=== PATIENT | female | born 1985 | race Caucasian/White ===

== ENCOUNTER → 2017-06-11 18:30 | Outpatient (CLI) | payer MEDICAID, SELFPAY ==
[2017-06-11 18:32] LABS: Bacteria 0 SEEN /hpf (None Seen); Mucous, Urine 0 SEEN /hpf (<or=2+)
[2017-06-11 19:10] LABS: Color, Urine Yellow (Yellow); Glucose, Dipstick Normal (Normal); Ketone-Dipstick Negative (Negative); Leukocyte Esterase-Dipstick Negative /ul (Negative); Nitrite-Dipstick Negative (Negative); Occult Blood-Urine 50 /ul (Negative); Protein-Dipstick Negative (Negative); Urine Bilirubin Dipstick Negative (Negative); Urine Clarity Clear (Clear); Urine Urobilinogen Normal (Normal)
[2017-06-11 19:23] LABS: Red Blood Cells-Urine 0-5 SEEN /hpf (0-5); Squamous Epithelial Cells - UA 0-5 SEEN /hpf (5-10); White Blood Cells 0-5 SEEN /hpf (0-5)
== END ==
PROVIDERS: Visit Provider Physician Assistant Surgical
DX: R30.0 Dysuria (principal)
CPT/HCPCS: 81001; 87077; 87086; 87088; 87186

== ENCOUNTER 2017-07-16 09:31 | Emergency (ER) | payer MEDICAID, SELFPAY ==
[2017-07-16 09:32] VITALS: BP 148/96; PULSE 92; RESP 26; TEMP 36.2; O2SAT 96; BMI 67.2
[2017-07-16 09:44] VITALS: BP 142/86; PULSE 84; RESP 21; O2SAT 96
--- NOTE | 2017-07-16 09:44 | EKG12_ITS ---
Test Reason : SOB Blood Pressure : / mmHG Vent. Rate : 080 BPM Atrial Rate : 081 BPM P-R Int : 172 ms QRS Dur : 088 ms QT Int : 408 ms P-R-T Axes : 043 048 036 degrees QTc Int : 470 ms Normal sinus rhythm Normal ECG Confirmed by ADAIR HUTSON ([id number]), medical editor STEFANI YANG ([id number]) on 07/26/2017 6:18:25 PM Referred By: MIKAYLA Confirmed By:ADAIR HUTSON
--- NOTE | 2017-07-16 09:45 | CT_ITS ---
STUDY: CTA CHEST REASON FOR EXAM: Female, 32 years old. Dyspnea. The patient is status post thyroidectomy. RADIATION DOSAGE (If Supplied By Facility): CTDIvol = ( 16.72 ) mGy, DLP = ( 789.58 ) mGycm TECHNIQUE: The examination was performed with the intravenous administration of 100 ml of Isovue 370 contrast material. Post-processing of the angiographic images was performed, with multiplanar reformation and 3D reconstruction. Individualized dose optimization techniques were used for this CT. COMPARISON: None. FINDINGS: Limited study due to patient's body habitus. Normal enhancement of the main pulmonary artery and right and left pulmonary arteries. Normal enhancement of the bilateral peripheral pulmonary arteries. There is no demonstrated pulmonary embolism. Normal thoracic aorta and visualized great vessels. There is no demonstrated aortic dissection. Normal heart and pericardium. Normal mediastinum. Normal hilar regions. Normal visualized trachea and bronchi. The lungs are well expanded. Focal increased markings at the posterior medial segments of both lower lobes suggestive of a bibasilar atelectasis. Normal pleura. Normal chest wall structures. Normal osseous structures. Normal visualized upper abdomen. CT/CTA Chest W/WO Contrast IMPRESSION: No definite pulmonary embolism is seen. Findings suggestive of bibasilar atelectasis. Electronically Signed: Jacob Holguin MD at 11:16 EDT Tel [phone], Service support ,
[2017-07-16 10:14] LABS: Absolute Lymphocyte Count 2.08 X10^3/ul (0.83-4.51); Absolute Neutrophil Count 5.6 X10^3/uL (2.0-7.7); Basophil# 0.01 X10^3/uL; Basophil% 0.1 % (0-1); Eosinophil# 0.05 X10^3/uL; Eosinophils% 0.6 % (0-5); Hematocrit 38.6 % (37-47); Lymphocyte # 2.08 X10^3/ul (4.0); Lymphocyte % 24.7 % (19-41); Mean Corp Hgb Conc 31.1 g/gl (32-36); Mean Corpuscular Hgb 26.3 pg (27.0-32.0); Mean Corpuscular Volume 84.6 fL (81-99); Mean Platelet Vol. 10.1 fl (6.2-12.0); Monocyte# 0.69 X10^3/uL; Monocyte% 8.2 % (0-10); Neutrophil # 5.57 X10^3/uL (2.7-7.7); Neutrophil % 66.3 % (47-70); Platelet Count 176 K/mm3 (150-450); RBC Distribution Width CV 14.4 % (11.6-14.6); RBC Distribution Width SD 44.8 fl (35.1-43.9); Red Blood Count 4.56 M/mm3 (4.2-5.4); White Blood Count 8.4 K/mm3 (4.4-11.0)
[2017-07-16 10:15] LABS: POSITIVE COUNT NO; POSITIVE DIFFERENTIAL NO; POSITIVE MORPHOLOGY NO
[2017-07-16 10:23] LABS: D-Dimer Quantitative (DVT/PE) 0.48 FEU/ug/m (0.27-0.49)
[2017-07-16 10:29] LABS: Anion Gap 8 (5-15); BUN 14 mg/dL (7-18); Calcium,Total 6.8 mg/dL (8.5-10.1); Chloride 108 mmol/L (98-107); Creatinine, Serum 0.93 mg/dL (0.55-1.02); EST Glomerular Filtration Rate 75 mL/min (>60); Est Glom Filt Rate - Afr Amer 90 mL/min (>60); Estimated Creatinine Clearance 95.65 ml/min; Glucose 100 mg/dL (74-106); Potassium 3.6 mmol/L (3.5-5.1); Sodium Level 141 mmol/L (136-145)
[2017-07-16] MEDS: LORazepam 2 MG/ML Syringe 1 MG IV (10:59)
[2017-07-16] MEDS: 0.9% Normal Saline 1,000 ML 150 ML IV (10:59)
[2017-07-16 11:00] VITALS: BP 131/98; PULSE 81; RESP 22; O2SAT 95
--- NOTE | 2017-07-16 11:32 | NURSING ---
CALLING DR POWELL [phone]
[2017-07-16 11:40] VITALS: PULSE 90; RESP 22
[2017-07-16] MEDS: Ipratropium/Albuterol Sulfate 3 ML AMPUL.NEB INHALATION (11:40)
--- NOTE | 2017-07-16 11:49 | ED.VISSUMM ---
- ER Visit Summary Date of Service: 07/16/17 Chief Complaint: [Shortness of breath] History of Present Illness: The patient is a 32 F [presents the emergency department complaint of shortness of breath that started yesterday evening. Patient also complains of some chest tightness. Patient tells me that she had a thyroidectomy done 2 days ago at the [facility]. Patient also complains of numbness and tingling in her feet. She denies any fever or significant cough. Patient tells me she does have a history of asthma and tried using her inhaler with out any resolution of her symptoms.] Physical Examination: [HEENT-PERRLA, EOMI. Cranial nerves II through XII grossly intact. TMs clear. Mucous membranes moist. No adenopathy. Surgical wound on anterior neck healing well without any evidence of infection. No masses palpated. Negativ Chevostek sign. Cardiovascular-regular rate and rhythm without murmur or ectopy Lungs-clear to auscultation, chest wall stable without crepitus or subcu emphysema Abdomen-normoactive bowel sounds, soft, nontender, no rebound or rigidity, no peritoneal signs. Extremities-intact ?4, normal range of motion, normal pulses, atraumatic] Test Results: [CBC with differential showed a white count of 8.4, hemoglobin 12, hematocrit 38.6, platelets 176. Troponin was less than 0.015. Chemistries were unremarkable other than a calcium that was depressed at 6.8. D-dimer was 0.48.] CTA of the chest revealed no evidence for PE or acute disease process. There was no evidence for abscess or compressive lesion at the surgical site in her neck. Emergency Department Course and Treatment: [Patient case discussed with patient's surgeon who asked that patient take 1000 mg of calcium every other hour and increase her calcitriol to 0.5 mcg twice a day. It was felt her symptoms likely due to hypercalcemia related to donning of the hyperparathyroid glands. Patient to follow-up with his office in 3-4 days and call with further issues.] Treatment Plan: [Follow-up with her surgeon and increase her calcium intake as well as her calcitriol.] Disposition: [Discharged home in stable condition] Impression: [Dyspnea Hypocalcemia] This note was generated with [employer] software. It may contain incorrect words, spelling, and punctuation that were not noted in review of the chart prior to signing ED Disposition - Plan for ED Patient: Chief Complaint: Shortness of Breath Referrals: Gregorio Adams MD [Primary Care Provider] -
--- NOTE | 2017-07-16 11:53 | ED.DCSUM_ITS ---
- ER Visit Summary Date of Service: 07/16/17 Chief Complaint: [Shortness of breath] History of Present Illness: The patient is a 32 F [presents the emergency department complaint of shortness of breath that started yesterday evening. Patient also complains of some chest tightness. Patient tells me that she had a thyroidectomy done 2 days ago at the [facility]. Patient also complains of numbness and tingling in her feet. She denies any fever or significant cough. Patient tells me she does have a history of asthma and tried using her inhaler with out any resolution of her symptoms.] Physical Examination: [HEENT-PERRLA, EOMI. Cranial nerves II through XII grossly intact. TMs clear. Mucous membranes moist. No adenopathy. Surgical wound on anterior neck healing well without any evidence of infection. No masses palpated. Negativ Chevostek sign. Cardiovascular-regular rate and rhythm without murmur or ectopy Lungs-clear to auscultation, chest wall stable without crepitus or subcu emphysema Abdomen-normoactive bowel sounds, soft, nontender, no rebound or rigidity, no peritoneal signs. Extremities-intact ?4, normal range of motion, normal pulses, atraumatic] Test Results: [CBC with differential showed a white count of 8.4, hemoglobin 12 , hematocrit 38.6, platelets 176. Troponin was less than 0.015. Chemistries were unremarkable other than a calcium that was depressed at 6.8. D-dimer was 0.48.] CTA of the chest revealed no evidence for PE or acute disease process. There was no evidence for abscess or compressive lesion at the surgical site in her neck. Emergency Department Course and Treatment: [Patient case discussed with patient' s surgeon who asked that patient take 1000 mg of calcium every other hour and increase her calcitriol to 0.5 mcg twice a day. It was felt her symptoms likely due to hypercalcemia related to donning of the hyperparathyroid glands. Patient to follow-up with his office in 3-4 days and call with further issues.] Treatment Plan: [Follow-up with her surgeon and increase her calcium intake as well as her calcitriol.] Disposition: [Discharged home in stable condition] Impression: [Dyspnea Hypocalcemia] This note was generated with [employer] software. It may contain incorrect words, spelling, and punctuation that were not noted in review of the chart prior to signing ED Disposition - Plan for ED Patient: Chief Complaint: Shortness of Breath Referrals: Gregorio Adams MD [Primary Care Provider] -
--- NOTE | 2017-07-16 11:53 | ED.DEP ---
ED Disposition - Plan for ED Patient: Chief Complaint: Shortness of Breath Instructions: ED Dyspnea Shortness of Breath, ED Hypocalcemia Referrals: Gregorio Adams MD [Primary Care Provider] - Additional Instructions: call your surgeon with any problems.
[2017-07-16 12:12] VITALS: BP 144/94; PULSE 97; RESP 22; O2SAT 97
--- NOTE | 2017-07-16 12:13 | ED.RN ---
THIS NURSE REVIEWED D/C INSTRUCTIONS WITH PT. PT VERBALIZED UNDERSTANDING OF INSTRUCTIONS. IV D/C. IV CATHETER INTACT. PT TOLERATED WELL. PT ASSISTED TO HOSPITAL VAN VIA W/C. PT ABLE TO GET INTO VAN ON HER OWN WITHOUT ASSISTANCE FROM STAFF. PT DENIES FURTHER NEEDS OR QUESTIONS AT THIS TIME.
== END 2017-07-16 12:15 | disposition home or self-care (01) ==
PROVIDERS: Emergency Provider Emergency Medicine; Family Provider Family Medicine; PCP Family Medicine
DX: R06.00 Dyspnea, unspecified (principal); E83.51 Hypocalcemia; J45.909 Unspecified asthma, uncomplicated; E89.0 Postprocedural hypothyroidism; Z79.51 Long term (current) use of inhaled steroids
CPT/HCPCS: 71275; 80048; 84484; 85025; 85379; 93005; 94640; 96361; 96374; 99284; J7030; Q9967; A4216

== ENCOUNTER 2017-09-09 09:00 | Outpatient (RCR) | payer MEDICAID, SELFPAY ==
--- NOTE | 2017-04-23 14:42 | HP.PTEVAL_ITS ---
Patient's Visit Information DANIEL WESLEY is a 32 year old F referred to Physical Therapy by Gregorio LOUISE with a diagnosis of SPINAL STENOSIS OF LUMBAR REGION UNSPECIFIED NUEROGENIC PRESENT. Date of Evaluation: 04/23/17 Physical Therapist: Jeffry Martel PT, - Visit Plan Frequency: 2x /Week Duration: 4 Weeks Plan: Aquatic PT, for lumbar ROM ,strength,conditiong,LE strength - Subjective Subjective: This 32 y/o female presents to physical therapy with lumbar pain and radicular symptoms due to spinal stenosis. Patient has lumbar pain and raducular syptoms in legs for 3 years ago which has been worsning. Patient had spinal stenosis from CT Scan possible congential .Seen Neurolgist recommended surgery. Family DR carbajalded PT ,and epidural injection. Patient chiropractor, MEDS. Patient plan biariatric surgery. Also plan to have throid surgery. Location of pain lumbar pain with symptoms to foot. Symmptoms worse with walking ,standing,bending,lifting. Symptoms better sitting,rest,MEDS.Pain affects sleeping.Symtoms desribed as burning.Pain seen pain managemnent. Pain affects quality of life.Patient has some tingling left leg. VOCATION: UNEMPLOYED. SOCIAL: single - Pain Bilateral Back Pain Intensity (Out of 10): 10 Pain Intensity Range: 10 Comment: walking Left Lower Extremity Pain Intensity (Out of 10): 10 Pain Intensity Range: 10 - Objective POSTURE: mild foward posture ,hips/knees,valgus knee. PALAPTION: tender posteriot left side. GAIT: slow alverto ,mild foward posture,waddle gait ,SOB , wide NORBERTO. NEURO: denies parathesia/tingling ,redflexes L3-4,L4-5,L5-S1 1/3. LUMBAR ROM: flexion mod loss,side glides mod loss,extension severe loss pain. FLEXABLITY: hams mod tight,piriformis mod/severe loss. MMT: L-quads/hams 3-/5, hip 3-/5,ankle 4-/5,R - 4-/5. SYMTTRIES: assymtrical pelvis - Special Tests L/S Slump test left side: Positive L/S Slump test right side: Positive L/S Left Straight Leg Raise: Positive L/S Right Straight Leg Raise: Positive Lumbar Standing: Flexion - Mechanical Response: No effect Lumbar Standing: Flexion - Symptoms During Testing: Abolishes Lumbar Standing: Flexion - Symptoms After Testing: Worse Lumbar Standing: Extension - Mechanical Response: No effect Lumbar Standing: Extension - Symptoms During Testing: Increases Lumbar Standing: Extension - Symptoms After Testing: Worse Lumbar Standing: Right Side Glides - Mechanical Response: No effect Lumbar Standing: Right Side [place] - Symptoms During Testing: Increases Lumbar Standing: Right Side [place] - Symptoms After Testing: Worse Lumbar Standing: Left Side [place] - Mechanical Response: No effect Lumbar Standing: Left Side [place] - Symptoms During Testing: Increases Lumbar Standing: Left Side [place] - Symptoms After Testing: Worse - Goals Goal 1:: Patient to be Independant with Aqutaic PT Goal 2:: Patient to be Independant with posture for ADL'S Goal Time Frame: 4-6 Weeks Goal 3:: Improve strength of left leg to 3/5 to improve from function with walking. Goal Time Frame: 4-6 Weeks Goal 4:: Patient improve lumbar ROM for function of recovery. Goal Time Frame: 4-6 Weeks Goal 5:: Improve quality of quality of gait with less pain Goal Time Frame: 4-6 Weeks Goal 6:: Patient to improve functional endurance for activity to fair to improne ADL'S AND WALKING Goal Time Frame: 4-6 Weeks - Rehabilitation Potential Physical Therapy Diagnosis: This patient has multiple complexity comorbities along with severe pain in lumbar and leg due to spinal stenosis ,poor Lum bar ROM, decrease strength left leg hip/knee impairs gait and ADL'S,thus benifit from skilled PT Rehabilitation Potential: Good - Anticipated Interventions Patient/Client Instruction: Educate patient on: Condition, Plan of Care For the Purpose of:: To decrease pain, To decrease swelling/inflammation, To increase ROM, To improve muscle performance and motor function, To increase tolerance to activity/condition/position, To improve ability of physical actions for home/community/work/leisure, To improve health of tissue, To decrease soft tissue restriction, To increase flexibility/ROM, To improve endurance, To improve balance, To improve safety with gait, To improve health and function, To foster healthy habits, To improve decision making, To improve ability to perform tasks related to life management Therapeutic Exercise to Include: Strength training, Balance training, Body mechanics, Postural training, Flexibilty training, In an aquatic setting, Dynamic Lumbar Stabilization For the Purpose of:: To decrease pain, To increase ROM, To improve muscle performance and motor function, To increase tolerance to activity/condition/ position, To improve ability of physical actions for home/community/work/leisure , To improve health of tissue, To decrease soft tissue restriction, To increase flexibility/ROM, To improve endurance, To assume or resume ADL's, To improve health and function, To foster healthy habits, To improve ability to perform tasks related to life management Thank you for the opportunity to evaluate your patient. For Medicare and Medicare HMO plans, please review the plan of care and approve it. It will need to be FAXED BACK to us at [phone] for Medicare purposes. Please let me know if there are questions or concerns regarding this plan of care. Physician Signature: Date:
--- NOTE | 2017-10-28 12:26 | HP.PTDCNRP_ITS ---
HP - Discharge Summary (1) - Patient Information DANIEL WESLEY was seen in my office for initial evaluation on 04/23/17. The following Plan of Care was established for this patient: Initial Frequency: 2x /Week Initial Duration: 4 Weeks - Anticipated Interventions Patient/Client Instruction: Educate patient on: Condition, Plan of Care For the Purpose of:: To decrease pain, To decrease swelling/inflammation, To increase ROM, To improve muscle performance and motor function, To increase tolerance to activity/condition/position, To improve ability of physical actions for home/community/work/leisure, To improve health of tissue, To decrease soft tissue restriction, To increase flexibility/ROM, To improve endurance, To improve balance, To improve safety with gait, To improve health and function, To foster healthy habits, To improve decision making, To improve ability to perform tasks related to life management Therapeutic Exercise to Include: Strength training, Balance training, Body mechanics, Postural training, Flexibilty training, In an aquatic setting, Dynamic Lumbar Stabilization For the Purpose of:: To decrease pain, To increase ROM, To improve muscle performance and motor function, To increase tolerance to activity/condition/ position, To improve ability of physical actions for home/community/work/leisure , To improve health of tissue, To decrease soft tissue restriction, To increase flexibility/ROM, To improve endurance, To assume or resume ADL's, To improve health and function, To foster healthy habits, To improve ability to perform tasks related to life management This patient was last seen in our office . Pertinent comments regarding their Physical therapy will appear below: Patient was seen for PT INTIAL PT EVAL only ,thus is d/c. At this point I will be discontinuing this patient from physical therapy. I would be happy to see this patient again in the future if found appropriate by the physician. Thank you! Jeffry Martel, PT,
--- NOTE | 2017-10-28 12:29 | HP.PTDCNRP_ITS ---
HP - Discharge Summary (1) - Patient Information DANIEL WESLEY was seen in my office for initial evaluation on 04/23/17. The following Plan of Care was established for this patient: Initial Frequency: 2x /Week Initial Duration: 4 Weeks - Anticipated Interventions Patient/Client Instruction: Educate patient on: Condition, Plan of Care For the Purpose of:: To decrease pain, To decrease swelling/inflammation, To increase ROM, To improve muscle performance and motor function, To increase tolerance to activity/condition/position, To improve ability of physical actions for home/community/work/leisure, To improve health of tissue, To decrease soft tissue restriction, To increase flexibility/ROM, To improve endurance, To improve balance, To improve safety with gait, To improve health and function, To foster healthy habits, To improve decision making, To improve ability to perform tasks related to life management Therapeutic Exercise to Include: Strength training, Balance training, Body mechanics, Postural training, Flexibilty training, In an aquatic setting, Dynamic Lumbar Stabilization For the Purpose of:: To decrease pain, To increase ROM, To improve muscle performance and motor function, To increase tolerance to activity/condition/ position, To improve ability of physical actions for home/community/work/leisure , To improve health of tissue, To decrease soft tissue restriction, To increase flexibility/ROM, To improve endurance, To assume or resume ADL's, To improve health and function, To foster healthy habits, To improve ability to perform tasks related to life management This patient was last seen in our office 06/22/17. Pertinent comments regarding their Physical therapy will appear below: Patient seen for PT for Aquatic PT focusing on DLS,postural ex's,LE strengthening and recommended motorized W/C. Symptom getting worse thus bis d/c. At this point I will be discontinuing this patient from physical therapy. I would be happy to see this patient again in the future if found appropriate by the physician. Thank you! Jeffry Martel, PT,
== END 2017-09-09 19:00 | disposition home or self-care (01) ==
LOC: PT 09:00
PROVIDERS: Family Provider Family Medicine; PCP Family Medicine; Visit Provider Family Medicine
DX: M48.061 Spinal stenosis, lumbar region without neurogenic claudication (principal)
CPT/HCPCS: 97113; 97162; 97530

== ENCOUNTER 2020-07-12 05:06 | Emergency (ER) | payer MEDICARE, MEDICAID, SELFPAY ==
[2018-01-07 08:08] VITALS: BMI 61.7
[2020-07-12 05:07] VITALS: BP 146/76; PULSE 71; RESP 16; TEMP 37.2; O2SAT 97; BMI 50.3
--- NOTE | 2020-07-12 05:29 | EKG12_ITS ---
Test Reason : DYSRHYTHMIA Blood Pressure : / mmHG Vent. Rate : 067 BPM Atrial Rate : 067 BPM P-R Int : 174 ms QRS Dur : 096 ms QT Int : 412 ms P-R-T Axes : 062 053 032 degrees QTc Int : 435 ms Normal sinus rhythm Normal ECG Confirmed by JAE BRUNER, SHIRA ([id number]), book or script editor KJ ISIDRO ([id number]) on 07/16/2020 1:56:28 PM Referred By: CHICHI Confirmed By:SHIRA ROWE MD
--- NOTE | 2020-07-12 05:29 | RAD_ITS ---
STUDY: X-RAY CHEST REASON FOR EXAM: Female, 35 years old. syncope TECHNIQUE: Single AP portable view of the chest. COMPARISON: 06/24/2015 FINDINGS: The lungs are clear and expanded. There is no demonstrated pleural abnormality. Normal size heart. Normal mediastinum and rebecca. Normal visualized pulmonary arteries. Normal visualized aortic arch and descending thoracic aorta. Normal visualized thoracic spine. Normal visualized ribs, clavicles, and shoulders. There is no demonstrated abnormality of the visualized soft tissue structures of the upper abdomen. RAD/Chest 1 View (Portable) IMPRESSION: Normal x-ray examination of the chest. Electronically Signed: Kasi Shelby DO at 6:23 EDT Tel , Service support ,
[2020-07-12 05:40] LABS: Absolute Lymphocyte Count 2.23 X10^3/uL (0.83-4.51); Absolute Neutrophil Count 4.4 X10^3/uL (2.0-7.7); Basophil# 0.02 X10^3/uL; Basophil% 0.3 % (0-1); Eosinophil# 0.06 X10^3/uL; Eosinophils% 0.8 % (0-5); Hemoglobin 13.2 g/dL (12.0-15.0); Lymphocyte # 2.23 X10^3/ul (0.83-4.51); Mean Corp Hgb Conc 32.2 g/dL (32-36); Mean Platelet Vol. 10.7 fl (6.2-12.0); Monocyte# 0.67 X10^3/uL; NRBC Flagged by Analyzer 0 % (0-5); Neutrophil # 4.43 X10^3/uL (2.7-7.7); Neutrophil % 59.6 % (47-70); Platelet Count 185 K/mm3 (150-450); RBC Distribution Width CV 12.4 % (11.6-14.6); RBC Distribution Width SD 39.3 fl (35.1-43.9); Red Blood Count 4.71 M/mm3 (4.2-5.4); White Blood Count 7.4 K/mm3 (4.4-11.0)
--- NOTE | 2020-07-12 05:41 | EX.ED.DYSGE1 ---
HPI History of Present Illness Chief Complaint: Syncope Informant: patient Onset/Context/Timing Onset: Today Narrative Narrative: Patient is a 35-year-old female presenting after syncopal episode. Patient states that she is having palpitations all night. She got up from bed and started to feel very sweaty. She got out of bed and took a metoprolol which she states she takes if she is having palpitations from time to time. She called 911 because she was not feeling well and they told her to unlock her door in her apartment. When she was walking back from that she then passed out. Patient states she hit her head on the wall. She does not remember this. She states that she felt nauseous right before this happened as well. Patient denies any history of syncope. She notes that 4 days ago she was started on new anxiety medication Effexor. In addition she did start a liquid diet in anticipation of having gastric bypass in a week. She is about a year and a half out from having gastric sleeve procedure. Patient denies associated chest pain, shortness of breath or difficulty breathing. She denies any diarrhea or abdominal pain. She denies any black or bloody stools. She is not taking any yeee-nva-wlewiri medications. She is not any hormonal therapy. She denies any swelling of her legs. She has a history of DVT or PE. Prior similar symptoms: No PFSH PFSH Medical History Asthma Back pain Hay fever Hemorrhoids Hypertension Incontinence Severe headache SOB (shortness of breath) Home Medications azithromycin 250 mg tablet See Rx Instructions PO .COMPLEX #6 tab 01/07/18 [Rx Last Taken Unknown] dextromethorphan polistirex 30 mg/5 mL oral susp ext.release 12hr 10 ml PO ONCE 01/07/18 [History Last Taken Unknown] ypscknjdyw-LB-EX-acetaminophen 6.25 mg-5 mg-10 mg-325 mg capsule 2 cap PO ONCE 01/07/18 [History Last Taken Unknown] cholecalciferol (vitamin D3) [Vitamin D3] 50 mcg PO DAILY 07/12/20 [History Last Taken Unknown] levothyroxine 200 mcg PO DAILY 07/12/20 [History Last Taken Unknown] multivitamin 1 tab PO DAILY 07/12/20 [History Last Taken Unknown] venlafaxine 37.5 mg PO DAILY 07/12/20 [History Last Taken Unknown] Allergy/AdvReac Type Severity Reaction Status Date / Time ibuprofen AdvReac Upset Verified 07/12/20 05:13 Stomach NSAIDS (Non-Steroidal AdvReac Upset Verified 07/12/20 05:14 Anti-Inflamma Stomach Surgical History History of appendectomy History of cholecystectomy History of gastric surgery History of thyroidectomy Social History Smoking Status: Never smoker alcohol intake: never ROS ROS ED Constitutional Constitutional ED: Reports sweats and other Details: Syncope ; Denies chills, fever(s) or malaise Eyes Eyes: Denies blurry vision or loss of vision ENT ENT ED: Denies rhinorrhea or sore throat Cardiovascular Cardiovascular: Reports palpitations and racing heartbeat; Denies chest pain or dizziness Respiratory/Chest Respiratory/Chest: Denies cough or dyspnea Gastrointestinal Gastrointestinal: Reports nausea; Denies abdominal pain, diarrhea, melena or vomiting Genitourinary Genitourinary ED: Denies dysuria or hematuria Musculoskeletal Musculoskeletal: Denies arthralgias or myalgias Integumentary Denies rash or wounds Neurologic Neurologic: Denies focal weakness or headache(s) Psychiatric Psychiatric: Denies anxiety or behavioral changes EXAM Physical Exam Const Vital Signs: 07/12/20 05:07 07/12/20 05:14 07/12/20 06:38 Temperature 99 F Temperature Source Oral Pulse Rate 71 Pulse Rate [Lying] 66 Pulse Rate [Sitting] 81 Pulse Rate [Standing] 78 Respiratory Rate 16 Respiratory Effort Normal Respiratory Pattern Normal Blood Pressure 146/76 H Blood Pressure [Lying] 106/55 L Blood Pressure [Sitting] 112/61 Blood Pressure [Standing] 97/62 Blood Pressure Mean 99 Blood Pressure Mean [Lying] 72 Blood Pressure Mean [Sitting] 78 Blood Pressure Mean [Standing] 73 Pulse Ox 97 Oxygen Delivery Method Room Air Positive well nourished, well developed and no apparent distress General Appearance ED: well developed and NAD HEENT Reports normocephalic and moist mucous membranes HEENT Narrative: Contusion to left lateral eyebrow with some associated soft tissue swelling. No septal hematoma or signs of epistaxis. No malocclusion. atraumatic and trauma Nose: no nasal discharge General Ear: hearing grossly impaired External Ear: external ears normal Mouth ED: Yes moist mucous membranes abnormal Mouth: moist mucous membranes abnormal Eyes PERRL and EOMs intact bilaterally Neck full ROM and no meningeal signs Chest Wall inspection of chest normal Resp normal respiratory effort, normal air movement and clear to auscultation bilaterally Cardio regular rate, regular rhythm and no murmurs GI normal to inspection, nondistended, normoactive bowel sounds Back/Spine no CVA tenderness Extremity normal to inspection and full ROM Neuro oriented x3 and no focal motor deficits Sensorium / Orientation: alert Psych mental status grossly normal and thought process normal Skin no rashes or lesions noted and no wounds Skin Narrative: 1 cm superficial abrasion to the left lateral eyebrow Trauma: abrasion MDM MDM MDM Narrative Medical decision making narrative: Patient evaluated for dizziness. She had a syncopal episode at home. She does have a small contusion to her eyebrow. She appears nontoxic no acute distress to my evaluation. She is hemodynamically stable. Orthostatics are negative. She is given IV fluids. Patient was recently transition to a liquid diet in anticipation of gastric bypass and also switch to Effexor. I did look it up and Effexor has a side effect of dizziness 16% of the time. I suspect her dizziness is a combination of the new medication and her liquid diet. She does have ketones in her urine. Lab work is largely remarkable. Troponin is normal. EKG is normal. She does have some dizziness in the ER but has normal telemetry at that time. I do not think this is cardiac in nature. Patient is PE RC negative. Do not suspect PE as a cause of her syncope . Urinalysis is likely contaminated however she does have 4+ bacteria. It is sent out for culture. Patient was given IV fluids. She will be discharged home. Patient states she will stop taking the Effexor and follow-up with her prescribing doctor. Patient is counseled on signs and symptoms requiring return to the emergency room. Patient verbalizes agreement and understand this plan. Patient discharged home in stable and improved condition. Lab Data Labs: Laboratory Results - last 24 hr 07/12/20 07/12/20 07/12/20 05:30 05:30 06:40 WBC 7.4 RBC 4.71 Hgb 13.2 Hct 41.0 MCV 87.0 MCH 28.0 MCHC 32.2 RDW Std Deviation 39.3 RDW Coeff of Cheli 12.4 Plt Count 185 MPV 10.7 Immature Gran % (Auto) 0.300 Neut % (Auto) 59.6 Lymph % (Auto) 30.0 [place] % (Auto) 9.0 Eos % (Auto) 0.8 Baso % (Auto) 0.3 Absolute Neuts (auto) 4.4 Absolute Lymphs (auto) 2.23 Nucleated RBC % 0 Sodium 139 Potassium 3.3 L Chloride 106 Carbon Dioxide 24.0 Anion Gap 9 BUN 12 Creatinine 0.85 Estim Creat Clear Calc 101.80 Est GFR (MDRD) Af Amer 99 Est GFR (MDRD) Non-Af 82 BUN/Creatinine Ratio 14.1 Glucose 91 Calcium 8.3 L Total Bilirubin 1.90 H AST 17 ALT 24 Alkaline Phosphatase 75 Troponin I < 0.015 Total Protein 7.4 Albumin 3.7 Globulin 3.7 Albumin/Globulin Ratio 1.0 Urine Color Yellow Urine Clarity Clear Urine pH 5.0 Ur Specific [place] 1.025 Urine Protein 30 H Urine Glucose (UA) Normal Urine Ketones 50 H Urine Occult Blood Negative Urine Nitrite Negative Urine Bilirubin Negative Urine Urobilinogen Normal Ur Leukocyte Esterase 100 H Urine RBC 0 SEEN Urine WBC 10-25 SEEN Ur Squamous Epith Cells 5-10 SEEN Urine Bacteria 4+ Hyaline Casts 5-10 SEEN Urine Mucus 0 SEEN Urine Test Negative Radiography Diagnostic Testing: Radiology Impression Chest X-Ray 07/12/20 05:29 IMPRESSION: Normal x-ray examination of the chest. Electronically Signed: Kasi Shelby DO at 6:23 EDT Tel , Service support , Rhythm Strip Rhythm Strip: Sinus Rhythm Rate: 67 Ectopy: None EKG Initial EKG: Attestation: I personally reviewed and interpreted this EKG as follows: Interpretation: Sinus Rhythm Comments: Normal sinus rhythm rate of 67 Normal axis Normal intervals Normal ST segments Discharge Plan Triage Chief Complaint: Syncope Other Complaint: Palpitations ED Provider: Elyse Ordaz Dx/Rx/DC Orders Clinical Impression: Syncope and collapse, Drug side effects, Contusion of face Instructions: ED Facial Contusion, ED Dizziness Syncope Fainting W Pre Prescriptions: No Action azithromycin 250 mg tablet See Rx Instructions PO .COMPLEX Qty: 6 RF: 0 Severe Sinus Congest Alrgy-Cgh 6.25-5-10-325 mg capsule 2 cap PO ONCE RF: 0 dextromethorphan polistirex [Cough DM ER] 30 mg/5 mL suspension,extended rel 12 hr 10 ml PO ONCE RF: 0 multivitamin Tablet 1 tab PO DAILY RF: 0 venlafaxine 37.5 mg capsule,extended release 24hr 37.5 mg PO DAILY RF: 0 levothyroxine 100 mcg tablet 200 mcg PO DAILY RF: 0 cholecalciferol (vitamin D3) [Vitamin D3] 50 mcg (2,000 unit) Capsule 50 mcg PO DAILY RF: 0 Primary Care Provider: Gregorio Adams Referrals: Gregorio Adams MD [Primary Care Provider] - Disposition Disposition: Home, self care
[2020-07-12] MEDS: 0.9% Normal Saline 1,000 ML 1000 ML IV (05:45)
[2020-07-12 06:07] LABS: AST(SGOT) 17 U/L (15-37); Alanine Aminotransfer ALT/SGPT 24 U/L (13-56); Albumin, Serum 3.7 g/dL (3.2-5.0); Alkaline Phosphatase 75 U/L (45-117); Anion Gap 9 (5-15); BUN 12 mg/dL (7-18); BUN/Creat Ratio 14.1 RATIO (10-20); Calcium,Total 8.3 mg/dL (8.5-10.1); Chloride 106 mmol/L (98-107); Creatinine, Serum 0.85 mg/dL (0.55-1.02); EST Glomerular Filtration Rate 82 mL/min (>60); Est Glom Filt Rate - Afr Amer 99 mL/min (>60); Globulin 3.7 g/dL (2.2-4.2); Glucose 91 mg/dL (74-106); Potassium 3.3 mmol/L (3.5-5.1); Protein, Total 7.4 g/dL (6.4-8.2); Sodium Level 139 mmol/L (136-145)
[2020-07-12 06:38] VITALS: BP 106/55; BP 112/61; BP 97/62; PULSE 66; PULSE 78; PULSE 81
[2020-07-12 06:47] LABS: Mucous, Urine 0 SEEN /hpf (<or=2+); Red Blood Cells-Urine 0 SEEN /hpf (0-5)
[2020-07-12 06:50] LABS: Color, Urine Yellow (Yellow); Glucose, Dipstick Normal (Normal); Ketone-Dipstick 50 mg/dl (Negative); Leukocyte Esterase-Dipstick 100 /ul (Negative); Nitrite-Dipstick Negative (Negative); Occult Blood-Urine Negative /ul (Negative); Protein-Dipstick 30 mg/dl (Negative); Specific Gravity, Urine 1.025 (1.002-1.030); Urine Bilirubin Dipstick Negative (Negative); Urine Clarity Clear (Clear); Urine Urobilinogen Normal (Normal)
[2020-07-12 06:58] LABS: Bacteria 4+ /hpf (None Seen); Hyaline Cast 5-10 SEEN /lpf (0-5); Internal QC Validated? YES +Cl - CLEAR BKGD; Pregnancy, Urine Negative Negative; Squamous Epithelial Cells - UA 5-10 SEEN /hpf (5-10); White Blood Cells 10-25 SEEN /hpf (0-5)
[2020-07-12 07:27] VITALS: BP 146/89; PULSE 86; RESP 16; O2SAT 98
== END 2020-07-12 07:47 | disposition home or self-care (01) ==
PROVIDERS: Emergency Provider Emergency Medicine; PCP Family Medicine
DX: R55 Syncope and collapse (principal); T43.215A Adverse effect of selective serotonin and norepinephrine reuptake inhibitors, initial encounter; S00.12XA Contusion of left eyelid and periocular area, initial encounter; J45.909 Unspecified asthma, uncomplicated; I10 Essential (primary) hypertension; Z79.899 Other long term (current) drug therapy; W18.30XA Fall on same level, unspecified, initial encounter; Y93.89 Activity, other specified; Y92.039 Unspecified place in apartment as the place of occurrence of the external cause; Y99.8 Other external cause status
CPT/HCPCS: 71045; 80053; 81001; 81025; 84484; 85025; 87086; 87088; 93005; 96360; 96361; 99285; J7030; A4216

== ENCOUNTER 2020-08-07 12:19 | Emergency (ER) | payer MEDICARE, MEDICAID, SELFPAY ==
[2020-08-07 12:20] VITALS: BP 117/70; PULSE 83; RESP 14; TEMP 35.5; O2SAT 99; BMI 47.0
--- NOTE | 2020-08-07 14:08 | CT_ITS ---
STUDY: CT ABDOMEN AND PELVIS WITH CONTRAST REASON FOR EXAM: Female, 35 years old. abdominal pain, constipation -- IV PO Contrast RADIATION DOSAGE (If Supplied By Facility): CTDIvol = ( 21.62 ) mGy, DLP = ( 1886.25 ) mGycm TECHNIQUE: Transaxial images were obtained from the dome of the diaphragm to the symphysis pubis without oral contrast. Oral and amp;amp; IV Gastrografin and amp;amp; 100mL Isovue-300 was administered. Sagittal and coronal images were reconstructed. Individualized dose optimization techniques were used for this CT. COMPARISON: 06/24/2014 FINDINGS: The visualized lung bases are unremarkable. The visualized portions of the heart are within normal limits. Normal liver. There is non-visualization of the gallbladder, which may be secondary to either contraction or a prior cholecystectomy. Normal spleen. Normal pancreas. Normal bilateral adrenal glands. Normal right kidney. Normal left kidney. Status post gastric surgery. Normal small intestine. Normal colon. There is non-visualization of the appendix. Normal abdominal aorta. Normal inferior vena cava. Normal retroperitoneum. Normal urinary bladder. Normal abdominal wall. Normal osseous structures. CT/Abdomen/Pelvis WITH Contrast IMPRESSION: Normal enhanced CT of the abdomen and pelvis. Electronically Signed: Jignesh Johnson MD at 16:49 EDT Tel , Service support ,
--- NOTE | 2020-08-07 14:09 | ED.VIS.GI ---
HPI HPI - GI History of Present Illness Chief Complaint: Constipation Detail of Chief Complaint: Pain and constipation for 9 days Informant: patient Nausea/Vomiting/Emesis GI Symptom: Positive for Nausea Narrative Narrative: Patient presents to the emergency department stating she has not had a good bowel movement in 9 days. Patient states that she had surgery on July 23 for gastric bypass in [facility]. Patient is currently on MiraLAX and has used Dulcolax suppositories. Her surgeons ordered IV fluids yesterday and she had 2 L. Patient states that she still feels dehydrated. Patient states that she feels like she is very nauseated anytime she tries to eat. She describes some diffuse abdominal discomfort. She denies any fevers. Patient has had prior appendectomy and cholecystectomy. Patient currently not taking any narcotic pain medication. Prior similar symptoms: No PFSH PFSH Medical History Asthma Back pain Hay fever Hemorrhoids Hypertension Incontinence Severe headache SOB (shortness of breath) Home Medications azithromycin 250 mg tablet See Rx Instructions PO .COMPLEX #6 tab 01/07/18 [Rx Last Taken Unknown] dextromethorphan polistirex 30 mg/5 mL oral susp ext.release 12hr 10 ml PO ONCE 01/07/18 [History Last Taken Unknown] dewramiwlz-SZ-FN-acetaminophen 6.25 mg-5 mg-10 mg-325 mg capsule 2 cap PO ONCE 01/07/18 [History Last Taken Unknown] cholecalciferol (vitamin D3) [Vitamin D3] 50 mcg PO DAILY 07/12/20 [History Last Taken Unknown] levothyroxine 200 mcg PO DAILY 07/12/20 [History Last Taken Unknown] multivitamin 1 tab PO DAILY 07/12/20 [History Last Taken Unknown] venlafaxine 37.5 mg PO DAILY 07/12/20 [History Last Taken Unknown] ondansetron 4 mg PO Q8H PRN PRN #10 tab 08/07/20 [Rx Last Taken Unknown] Allergy/AdvReac Type Severity Reaction Status Date / Time ibuprofen AdvReac Upset Verified 08/07/20 12:20 Stomach NSAIDS (Non-Steroidal AdvReac Upset Verified 08/07/20 12:20 Anti-Inflamma Stomach Surgical History History of appendectomy History of cholecystectomy History of gastric surgery History of thyroidectomy Social History Smoking Status: Never smoker alcohol intake: never ROS ROS ED Constitutional Constitutional ED: Reports systems reviewed and no addt'l complaints, except as documented; Denies body ache(s), change in weight or chills Eyes Eyes: Denies acute decrease in peripheral vision, change in vision, double vision or loss of vision ENT ENT ED: Reports none; Denies ear pain, lip swelling, loss taste/smell, neck pain, otalgia or sore throat Cardiovascular Cardiovascular: Reports none; Denies abdominal pain, chest pain with activity, leg edema, lightheadedness, palpitations, rapid heart rate or syncope Respiratory/Chest Respiratory/Chest: Reports none; Denies change in mental status, dry cough, dyspnea, hemoptysis, shortness of breath at rest or shortness of breath with exertion Gastrointestinal Gastrointestinal: Reports none, constipation, nausea and vomiting; Denies abdominal pain, change in stool character, diarrhea, hematemesis, hematochezia, melena or rectal bleeding Genitourinary Genitourinary ED: Reports none; Denies abdominal discomfort, anuria, dysuria, genital pain or polyuria Musculoskeletal Musculoskeletal: Reports none; Denies arthralgias, back pain, difficulty walking, extremity pain, muscle weakness or myalgias Integumentary Reports none; Denies abscess or rash Neurologic Neurologic: Reports none; Denies abnormal gait, confusion, focal weakness, frequent falls, headache(s), loss of vision, numbness, paresthesias, radicular pain, vertigo or weakness Psychiatric Psychiatric: Reports systems reviewed and no addt'l complaints, except as documented and none; Denies behavioral changes, confusion, difficulty concentrating, hallucinations, suicidal ideation, tactile hallucinations or visual hallucinations Endocrine Endocrinology: Denies none, cold intolerance, excessive sweating, fatigue or heat intolerance Hematologic/Lymphatic Hematologic/Lymphatic: Reports none; Denies anemia, easy bleeding or easy bruising Allergic/Immunologic Allergic/Immunologic ED: Denies as per HPI, none, lip swelling, mouth swelling, throat swelling, tongue swelling or hives EXAM Physical Exam Const Vital Signs: 08/07/20 12:20 08/07/20 16:09 Temperature 96 F L Temperature Source Temporal Pulse Rate 83 72 Respiratory Rate 14 14 Blood Pressure 117/70 151/75 H Blood Pressure Mean 85 100 Pulse Ox 99 100 Oxygen Delivery Method Room Air Room Air Positive well nourished and well developed General Appearance ED: well developed and NAD HEENT Reports TM's clear and moist mucous membranes normocephalic and atraumatic; Negative for trauma or tenderness Tympanic Membrane ED: Yes TM's clear Eyes PERRL and EOMs intact bilaterally General Eye ED: Negative for pale conjunctiva or scleral icterus Neck no lymphadenopathy, supple and no JVD General: Negative for tenderness Chest Wall inspection of chest normal and palpation of chest normal Chest: Negative for tenderness Resp normal respiratory effort and clear to auscultation bilaterally Effort and Inspection: Negative for respiratory distress or pain with movement Auscultation: Negative for rhonchi, wheezes or diminished lung sounds Cardio regular rate, regular rhythm, S1 normal heart sound, S2 normal heart sound and no murmurs Peripheral Pulses: pulses 2+ throughout GI normal to inspection, nondistended, normoactive bowel sounds, soft to palpation, non-distended and no masses; Negative for non-tender GI Narrative: Patient has diffuse tenderness on palpation. There is no rebound, rigidity, or peritoneal signs. The incisions are healing well. Patient is morbidly obese. Palpation: tender Back/Spine no CVA tenderness and no thoracic nor lumbar tenderness Extremity normal to inspection General Extremety ED: Negative for edema General Extremity: Negative for edema Neuro oriented x3, CN's II-XII intact bilaterally, no sensory deficits noted and gait normal Sensorium / Orientation: awake, alert, oriented to person, oriented to place and oriented to time Motor Exam: strength 5/5 throughout and strength abnormal Psych mental status grossly normal Skin no rashes or lesions noted and no wounds MDM MDM MDM Narrative Medical decision making narrative: All results discussed with patient. I also discussed case with who is the fellow bariatric surgeon at [facility]. I was asked to treat patient's constipation with magnesium citrate. Nothing further to do at this time. Patient also will be given a prescription for Zofran. Lab Data Attestation: I reviewed the patient's lab results. Labs: Laboratory Results - last 24 hr 08/07/20 08/07/20 08/07/20 14:40 14:40 14:40 WBC 6.5 RBC 4.64 Hgb 13.0 Hct 41.0 MCV 88.4 MCH 28.0 MCHC 31.7 L RDW Std Deviation 43.8 RDW Coeff of Cheli 13.6 Plt Count 224 MPV 10.9 Immature Gran % (Auto) 0.300 Neut % (Auto) 68.7 Lymph % (Auto) 24.1 [place] % (Auto) 6.1 Eos % (Auto) 0.6 Baso % (Auto) 0.2 Absolute Neuts (auto) 4.5 Absolute Lymphs (auto) 1.57 Nucleated RBC % 0 Sodium 142 Potassium 3.7 Chloride 109 H Carbon Dioxide 25.0 Anion Gap 8 BUN 7 Creatinine 0.84 Estim Creat Clear Calc 103.01 Est GFR (MDRD) Af Amer 100 Est GFR (MDRD) Non-Af 82 BUN/Creatinine Ratio 8.3 L Glucose 79 Lactic Acid 0.9 Calcium 8.6 Total Bilirubin 0.70 AST 24 ALT 41 Alkaline Phosphatase 76 Troponin I High Sens < 3.0 L Total Protein 7.3 Albumin 3.6 Globulin 3.7 Albumin/Globulin Ratio 1.0 Lipase 209 Radiography Diagnostic Testing: Radiology Impression Abdomen/Pelvis CT 08/07/20 14:08 IMPRESSION: Normal enhanced CT of the abdomen and pelvis. Electronically Signed: Jignesh Johnson MD at 16:49 EDT Tel , Service support , Discharge Plan Triage Chief Complaint: Constipation ED Provider: Kayleen Zhao Dx/Rx/DC Orders Clinical Impression: Constipation, Post-op pain Instructions: ED Constipation (Adult) Prescriptions: New ondansetron [ondansetron] 4 MG tablet 4 mg PO Q8H PRN PRN (Reason: Nausea) Qty: 10 RF: 0 No Action azithromycin 250 mg tablet See Rx Instructions PO .COMPLEX Qty: 6 RF: 0 Severe Sinus Congest Alrgy-Cgh 6.25-5-10-325 mg capsule 2 cap PO ONCE RF: 0 dextromethorphan polistirex [Cough DM ER] 30 mg/5 mL suspension,extended rel 12 hr 10 ml PO ONCE RF: 0 multivitamin Tablet 1 tab PO DAILY RF: 0 venlafaxine 37.5 mg capsule,extended release 24hr 37.5 mg PO DAILY RF: 0 levothyroxine 100 mcg tablet 200 mcg PO DAILY RF: 0 cholecalciferol (vitamin D3) [Vitamin D3] 50 mcg (2,000 unit) Capsule 50 mcg PO DAILY RF: 0 Primary Care Provider: Gregorio Adams Referrals: Gregorio Adams MD [Primary Care Provider] - Activity Restrictions/Additional Instructions: See your bariatric surgeon within the next 3 to 5 days if symptoms continue. Disposition Disposition: Home, Self Care
[2020-08-07 14:51] LABS: Absolute Lymphocyte Count 1.57 X10^3/uL (0.83-4.51); Absolute Neutrophil Count 4.5 X10^3/uL (2.0-7.7); Basophil# 0.01 X10^3/uL; Basophil% 0.2 % (0-1); Eosinophil# 0.04 X10^3/uL; Eosinophils% 0.6 % (0-5); Lymphocyte # 1.57 X10^3/ul (0.83-4.51); Lymphocyte % 24.1 % (19-41); Mean Corp Hgb Conc 31.7 g/dL (32-36); Mean Corpuscular Volume 88.4 fL (81-99); Mean Platelet Vol. 10.9 fl (6.2-12.0); Monocyte% 6.1 % (0-10); NRBC Flagged by Analyzer 0 % (0-5); Neutrophil # 4.48 X10^3/uL (2.7-7.7); Neutrophil % 68.7 % (47-70); Platelet Count 224 K/mm3 (150-450); RBC Distribution Width CV 13.6 % (11.6-14.6); RBC Distribution Width SD 43.8 fl (35.1-43.9); Red Blood Count 4.64 M/mm3 (4.2-5.4); White Blood Count 6.5 K/mm3 (4.4-11.0)
[2020-08-07] MEDS: 0.9% Normal Saline 1,000 ML 1000 ML IV (14:53)
[2020-08-07 15:08] LABS: AST(SGOT) 24 U/L (15-37); Alanine Aminotransfer ALT/SGPT 41 U/L (13-56); Albumin, Serum 3.6 g/dL (3.2-5.0); Alkaline Phosphatase 76 U/L (45-117); Anion Gap 8 (5-15); BUN 7 mg/dL (7-18); BUN/Creat Ratio 8.3 RATIO (10-20); Calcium,Total 8.6 mg/dL (8.5-10.1); Chloride 109 mmol/L (98-107); Creatinine, Serum 0.84 mg/dL (0.55-1.02); EST Glomerular Filtration Rate 82 mL/min (>60); Est Glom Filt Rate - Afr Amer 100 mL/min (>60); Estimated Creatinine Clearance 103.01 ml/min; Globulin 3.7 g/dL (2.2-4.2); Glucose 79 mg/dL (74-106); Lipase 209 U/L (73-393); Potassium 3.7 mmol/L (3.5-5.1); Protein, Total 7.3 g/dL (6.4-8.2); Sodium Level 142 mmol/L (136-145); Troponin-I HS < 3.0 pg/mL (3.0-53.7)
[2020-08-07 15:15] LABS: Lactic Acid 0.9 mmol/L (0.4-1.9)
[2020-08-07 16:09] VITALS: BP 151/75; PULSE 72; RESP 14; O2SAT 100
--- NOTE | 2020-08-07 17:06 | ED.RN ---
DR PRECIOUS HORN PAGED
[2020-08-07] MEDS: Magnesium Citrate 300 ML PO (17:43)
[2020-08-07 17:45] VITALS: BP 139/75; PULSE 72; RESP 14; O2SAT 97
== END 2020-08-07 17:46 | disposition home or self-care (01) ==
PROVIDERS: Emergency Provider Emergency Medicine; PCP Family Medicine
DX: K59.00 Constipation, unspecified (principal); G89.18 Other acute postprocedural pain; Z98.84 Bariatric surgery status; J45.909 Unspecified asthma, uncomplicated; I10 Essential (primary) hypertension; Z79.899 Other long term (current) drug therapy
CPT/HCPCS: 74177; 80053; 83605; 83690; 84484; 85025; 96360; 96361; 99283; Q9967

== ENCOUNTER 2020-09-20 10:13 | Emergency (ER) | payer MEDICARE, MEDICAID, SELFPAY ==
[2020-09-20 10:14] VITALS: BP 123/82; PULSE 69; RESP 16; TEMP 36.8; O2SAT 99; BMI 45.1
--- NOTE | 2020-09-20 10:51 | EKG12_ITS ---
Test Reason : Blood Pressure : / mmHG Vent. Rate : 057 BPM Atrial Rate : 057 BPM P-R Int : 172 ms QRS Dur : 090 ms QT Int : 426 ms P-R-T Axes : 055 048 034 degrees QTc Int : 414 ms Sinus bradycardia Otherwise normal ECG Confirmed by BAHMAN BRUNER, RANDOLPH ([id number]), editor continuity and script KJ ISIDRO ([id number]) on 09/23/2020 9:11:17 AM Referred By: STEVE Confirmed By:RANDOLPH RUGGIERO MD
--- NOTE | 2020-09-20 11:00 | RAD_ITS ---
EXAM DESCRIPTION: PORTABLE AP CHEST CLINICAL HISTORY: 35 years Female, chest pain chest pain COMPARISON: Previous chest obtained on 06/17/2020 FINDINGS: Mild levoscoliosis noted of the superior thoracic spine. The thorax is intact. The heart and mediastinum appear to be within normal limits. The lungs appear to be well areated without evidence of pneumonic consolidation or pleural effusion. RAD/Chest 1 View (Portable) IMPRESSION: No acute pathology Electronically Signed: Dimitris Alford DO at 11:31 EDT Tel , Service support ,
[2020-09-20 11:02] VITALS: O2SAT 97
[2020-09-20 11:04] LABS: Absolute Lymphocyte Count 1.47 X10^3/uL (0.83-4.51); Absolute Neutrophil Count 3.7 X10^3/uL (2.0-7.7); Basophil# 0.02 X10^3/uL; Basophil% 0.4 % (0-1); Eosinophil# 0.06 X10^3/uL; Eosinophils% 1.1 % (0-5); Hematocrit 40.3 % (37-47); Hemoglobin 12.7 g/dL (12.0-15.0); Lymphocyte # 1.47 X10^3/ul (0.83-4.51); Lymphocyte % 25.9 % (19-41); Mean Corp Hgb Conc 31.5 g/dL (32-36); Mean Corpuscular Hgb 28.5 pg (27.0-32.0); Mean Corpuscular Volume 90.6 fL (81-99); Mean Platelet Vol. 11.5 fl (6.2-12.0); Monocyte# 0.43 X10^3/uL; Monocyte% 7.6 % (0-10); NRBC Flagged by Analyzer 0 % (0-5); Neutrophil # 3.67 X10^3/uL (2.7-7.7); Neutrophil % 64.6 % (47-70); Platelet Count 188 K/mm3 (150-450); RBC Distribution Width CV 13.9 % (11.6-14.6); RBC Distribution Width SD 46.9 fl (35.1-43.9); Red Blood Count 4.45 M/mm3 (4.2-5.4); White Blood Count 5.7 K/mm3 (4.4-11.0)
[2020-09-20 11:13] VITALS: BP 119/67; PULSE 61; RESP 18; O2SAT 95
[2020-09-20 11:19] LABS: D-Dimer Quantitative (DVT/PE) 0.34 FEU/ug/m (0.27-0.49)
[2020-09-20 11:19] LABS: Anion Gap 7 (5-15); BUN 10 mg/dL (7-18); BUN/Creat Ratio 12.5 RATIO (10-20); Calcium,Total 8.8 mg/dL (8.5-10.1); Chloride 110 mmol/L (98-107); EST Glomerular Filtration Rate 88 mL/min (>60); Est Glom Filt Rate - Afr Amer 106 mL/min (>60); Estimated Creatinine Clearance 108.16 ml/min; Glucose 87 mg/dL (74-106); Magnesium 2.2 mg/dL (1.6-2.6); Potassium 3.7 mmol/L (3.5-5.1); Sodium Level 142 mmol/L (136-145); Troponin-I HS 3.9 pg/mL (3.0-53.7)
[2020-09-20 12:00] VITALS: BP 103/62; PULSE 63; RESP 18; O2SAT 100
--- NOTE | 2020-09-20 12:29 | ED.VIS.CHEST ---
HPI History of Present Illness Chief Complaint: Palpitations Informant: patient Narrative Narrative: Patient presents with palpitations and I occasional anterior chest pressure. She has a history of palpitations in the past. She has been on metoprolol for that. She has been trying to cut back on metoprolol because her gastric bypass surgeon wants her to hold off on that to avoid hypotension. She had a gastric bypass about 9 weeks ago. She has been having increasing episodes of palpitations. She gets some anterior chest pressure also. She is not short of breath diaphoretic or nauseated. She is eating drinking moving bowels and is not having abdominal pain. She has no history of heart disease. However, she has family history of heart disease in her father in his young 30s of an [place]. Despite gastric bypass, this patient denies a history of cholesterol diabetes or high blood pressure even prior to surgery. She has never had PE or DVT nor did they run in the family. She has no pleuritic pain. No hemoptysis. No leg swelling. PFSH PFSH Medical History Asthma Back pain Hay fever Hemorrhoids Hypertension Incontinence Severe headache SOB (shortness of breath) Home Medications cholecalciferol (vitamin D3) [Vitamin D3] 50 mcg PO DAILY 07/12/20 [History Last Taken Unknown] levothyroxine 200 mcg PO DAILY 07/12/20 [History Last Taken Unknown] multivitamin 1 tab PO DAILY 07/12/20 [History Last Taken Unknown] venlafaxine 37.5 mg PO DAILY 07/12/20 [History Last Taken Unknown] ondansetron 4 mg PO Q8H PRN PRN #10 tab 08/07/20 [Rx Last Taken Unknown] Allergy/AdvReac Type Severity Reaction Status Date / Time ibuprofen AdvReac Upset Verified 09/20/20 10:13 Stomach NSAIDS (Non-Steroidal AdvReac Upset Verified 09/20/20 10:13 Anti-Inflamma Stomach Surgical History History of appendectomy History of cholecystectomy History of gastric surgery History of thyroidectomy Social History Smoking Status: Never smoker alcohol intake: never ROS ROS ED Constitutional Constitutional ED: Reports weight loss; Denies fever(s) or subjective Eyes Eyes: Denies change in vision ENT ENT ED: Denies rhinorrhea or sore throat Cardiovascular Cardiovascular: Reports as per HPI and palpitations Respiratory/Chest Respiratory/Chest: Denies cough or dyspnea Gastrointestinal Gastrointestinal: Denies abdominal pain, constipation, diarrhea, melena, nausea or vomiting Genitourinary Genitourinary ED: Denies dysuria Musculoskeletal Musculoskeletal: Denies arthralgias or back pain Integumentary Denies rash Neurologic Neurologic: Denies headache(s) or weakness Endocrine Endocrinology: Denies polydipsia or polyuria Hematologic/Lymphatic Hematologic/Lymphatic: Denies easy bleeding or easy bruising Allergic/Immunologic Allergic/Immunologic ED: Denies mouth swelling or urticaria EXAM Physical Exam Const Vital Signs: 09/20/20 10:14 09/20/20 11:02 09/20/20 11:13 Temperature 98.2 F Temperature Source Temporal Pulse Rate 69 61 Respiratory Rate 16 18 Blood Pressure 123/82 H 119/67 Blood Pressure Mean 95 84 Pulse Ox 99 97 95 Oxygen Delivery Method Room Air Room Air Room Air 09/20/20 12:00 Temperature Temperature Source Pulse Rate 63 Respiratory Rate 18 Blood Pressure 103/62 Blood Pressure Mean 75 Pulse Ox 100 Oxygen Delivery Method Room Air Positive well nourished, well developed and obese General Appearance ED: well developed and NAD Nutritional Appearance: obese HEENT normocephalic and atraumatic Eyes General Eye ED: Negative for pale conjunctiva or scleral icterus Neck no lymphadenopathy Resp normal respiratory effort and clear to auscultation bilaterally Resp Narrative: No pain with a deep breath or palpation. Effort and Inspection: respiratory distress Auscultation: Negative for rales, rhonchi or wheezes Cardio regular rate and regular rhythm Rate: Negative for tachycardic GI normal to inspection, nondistended, normoactive bowel sounds, soft to palpation and non-tender GI Narrative: Well-healed port sites. Back/Spine no CVA tenderness Extremity normal to inspection Extremity Narrative: No asymmetry, distended veins or tenderness. General Extremety ED: Negative for edema, pulses abnormal or tenderness General Extremity: Negative for edema or pulses abnormal Neuro Sensorium / Orientation: awake and alert Psych mental status grossly normal Skin no rashes or lesions noted Heart Score History: Slightly/Non-Suspicious ECG: Normal Age: </= 45 years Risk Factors: 1 or 2 Risk Factors Troponin: </= Normal Limit Score: 1 MDM MDM MDM Narrative Medical decision making narrative: Patient's blood work showed normal CBC. Normal electrolytes including magnesium level. D-dimer was negative. Troponin was negative. These are despite several days or more of symptoms. Chest x-ray showed no acute process. EKG showed no acute process. No clinical indication of dissection PE or acute coronary syndrome. I think patient's okay to go home. She should see her gastric surgeon as well as her primary physician. There may be some consideration of the low-dose of metoprolol to help with her chronic palpitations. We discussed reasons to return including worsening pain, syncope or additional symptoms or concerns. Lab Data Attestation: I reviewed the patient's lab results. Labs: Laboratory Results - last 24 hr 09/20/20 09/20/20 09/20/20 10:27 10:27 11:00 WBC 5.7 RBC 4.45 Hgb 12.7 Hct 40.3 MCV 90.6 MCH 28.5 MCHC 31.5 L RDW Std Deviation 46.9 H RDW Coeff of Cheli 13.9 Plt Count 188 MPV 11.5 Immature Gran % (Auto) 0.400 Neut % (Auto) 64.6 Lymph % (Auto) 25.9 Millard % (Auto) 7.6 Eos % (Auto) 1.1 Baso % (Auto) 0.4 Absolute Neuts (auto) 3.7 Absolute Lymphs (auto) 1.47 Nucleated RBC % 0 D-Dimer Quant (PE/DVT) 0.34 Sodium 142 Potassium 3.7 Chloride 110 H Carbon Dioxide 25.0 Anion Gap 7 BUN 10 Creatinine 0.80 Estim Creat Clear Calc 108.16 Est GFR (MDRD) Af Amer 106 Est GFR (MDRD) Non-Af 88 BUN/Creatinine Ratio 12.5 Glucose 87 Calcium 8.8 Magnesium 2.2 Troponin I High Sens 3.9 Radiography Diagnostic Testing: Radiology Impression Chest X-Ray 09/20/20 11:00 IMPRESSION: No acute pathology Electronically Signed: Dimitris Alford DO at 11:31 EDT Tel , Service support , EKG Initial EKG: Comments: EKG done for palpitations and chest pressure and read by me shows sinus rhythm with mildly bradycardic rate of 57. No ectopy. No acute ST elevation or depression. Nonspecific ST and T wave flattening diffusely. MI interval, QRS duration and QTc are normal. Discharge Plan Triage Chief Complaint: Palpitations Other Complaint: Chest Pain ED Provider: John Limon Dx/Rx/DC Orders Clinical Impression: Heart palpitations, Chest pressure Instructions: ED Chest Pain, Uncertain Cause, ED Palpitations Prescriptions: No Action multivitamin Tablet 1 tab PO DAILY RF: 0 venlafaxine 37.5 mg capsule,extended release 24hr 37.5 mg PO DAILY RF: 0 levothyroxine 100 mcg tablet 200 mcg PO DAILY RF: 0 cholecalciferol (vitamin D3) [Vitamin D3] 50 mcg (2,000 unit) Capsule 50 mcg PO DAILY RF: 0 ondansetron [ondansetron] 4 MG tablet 4 mg PO Q8H PRN PRN (Reason: Nausea) Qty: 10 RF: 0 Stand Alone Forms: ED Work / School Excuse Primary Care Provider: Gregorio Adams Referrals: Gregorio Adams MD [Primary Care Provider] - 3-5 Days if not improving Disposition Disposition: Home, Self Care
[2020-09-20 12:43] VITALS: BP 103/72; PULSE 64; RESP 18; O2SAT 97
== END 2020-09-20 12:43 | disposition home or self-care (01) ==
PROVIDERS: Emergency Provider Emergency Medicine; PCP Family Medicine
DX: R07.89 Other chest pain (principal); R00.2 Palpitations; J45.909 Unspecified asthma, uncomplicated; I10 Essential (primary) hypertension; E66.9 Obesity, unspecified; Z98.84 Bariatric surgery status; Z79.899 Other long term (current) drug therapy
CPT/HCPCS: 71045; 80048; 83735; 84484; 85025; 85379; 93005; 99283; A4216

== ENCOUNTER 2020-11-25 15:58 | Emergency (ER) | payer MEDICARE, MEDICAID, SELFPAY ==
[2020-11-25 15:59] VITALS: BP 128/85; PULSE 86; RESP 16; TEMP 36.7; O2SAT 97; BMI 43.7
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
--- NOTE | 2020-11-25 16:30 | RAD_ITS ---
STUDY: X-RAY CHEST REASON FOR EXAM: Female, 35 years old. chest pain TECHNIQUE: PA and lateral COMPARISON: None. FINDINGS: The lungs are clear and expanded. There is no demonstrated pleural abnormality. Normal size heart. Normal mediastinum and rebecca. Normal visualized pulmonary arteries. Normal visualized aortic arch and descending thoracic aorta. Normal visualized thoracic spine. Normal visualized ribs, clavicles, and shoulders. There is no demonstrated abnormality of the visualized soft tissue structures of the upper abdomen. RAD/Chest PA and Lateral IMPRESSION: Normal x-ray examination of the chest. Electronically Signed: Keyon Luu MD at 16:57 EDT , Service support ,
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
[2020-11-25] MEDS: Ketorolac 30 MG/ML Syringe IM (17:03)
[2020-11-25] MEDS: Orphenadrine 60 MG/2 ML Ampul IM (17:03)
== END 2020-11-25 18:39 | disposition home or self-care (01) ==
PROVIDERS: Emergency Provider Emergency Medicine; PCP Family Medicine
DX: S16.1XXA Strain of muscle, fascia and tendon at neck level, initial encounter (principal); S29.012A Strain of muscle and tendon of back wall of thorax, initial encounter; J45.909 Unspecified asthma, uncomplicated; I10 Essential (primary) hypertension; Z79.899 Other long term (current) drug therapy; E66.9 Obesity, unspecified; V43.52XA Car driver injured in collision with other type car in traffic accident, initial encounter; Y93.I9 Activity, other involving external motion; Y92.410 Unspecified street and highway as the place of occurrence of the external cause; Y99.8 Other external cause status
CPT/HCPCS: 71046; 72072; 72100; 72125; 96372; 99282; A4216

== ENCOUNTER 2021-02-08 20:57 | Emergency (ER) | payer MEDICARE, MEDICAID, SELFPAY ==
[2021-02-08 20:58] VITALS: BP 130/96; PULSE 95; RESP 18; TEMP 35.7; BMI 43.4
[2021-02-08 21:09] VITALS: BP 126/75; O2SAT 96
--- NOTE | 2021-02-08 21:50 | EDS_ITS ---
HPI HPI - URI History of Present Illness Chief Complaint: Cough Informant: patient Narrative Narrative: Patient is a 35-year-old female with history of thyroid cancer status post thyroidectomy, obesity status post gastric sleeve and asthma presenting with 5 days of nasal congestion, runny nose and chest tightness. Today she started to get chills and feel hot, weak and dizzy. She had a cough that is been nonproductive of sputum. She is taken Tylenol sinus with no significant relief of her symptoms. She had nausea but no vomiting or diarrhea. Denies any urinary symptoms. Has very mild shortness of breath with exertion. Has not had a Covid vaccine. Is concerned that she might have Covid. Denies any sick contacts or exposures. ROS ROS ED Constitutional Constitutional ED: Reports chills and fever(s) Eyes Eyes: Denies blurry vision or change in vision ENT ENT ED: Reports ear pain, nasal congestion and rhinorrhea; Denies sore throat Cardiovascular Cardiovascular: Denies chest pain or palpitations Respiratory/Chest Respiratory/Chest: Reports cough and dyspnea on exertion; Denies dyspnea or sputum Gastrointestinal Gastrointestinal: Reports nausea; Denies abdominal pain, diarrhea or vomiting Genitourinary Genitourinary ED: Denies dysuria or hematuria Musculoskeletal Musculoskeletal: Reports myalgias; Denies arthralgias Integumentary Denies rash Neurologic Neurologic: Reports headache(s); Denies paresthesias or weakness Psychiatric Psychiatric: Denies depression [facility] Medical History Asthma Back pain Hay fever Hemorrhoids Hypertension Incontinence Severe headache SOB (shortness of breath) Home Medications cholecalciferol (vitamin D3) [Vitamin D3] 50 mcg PO DAILY 07/12/20 [History Last Taken Unknown] levothyroxine 200 mcg PO DAILY 07/12/20 [History Last Taken Unknown] multivitamin 1 tab PO DAILY 07/12/20 [History Last Taken Unknown] venlafaxine 37.5 mg PO DAILY 07/12/20 [History Last Taken Unknown] albuterol sulfate [Ventolin HFA] 1 - 2 puff INHALATION Q4H PRN PRN #1 inhaler 02/08/21 [Rx Last Taken Unknown] Allergy/AdvReac Type Severity Reaction Status Date / Time ibuprofen AdvReac Upset Verified 11/25/20 16:01 Stomach NSAIDS (Non-Steroidal AdvReac Upset Verified 11/25/20 16:01 Anti-Inflamma Stomach Surgical History History of appendectomy History of cholecystectomy History of gastric surgery History of thyroidectomy Social History Smoking Status: Never smoker alcohol intake: never EXAM Physical Exam Const Vital Signs: 02/08/21 20:58 02/08/21 21:09 Temperature 96.3 F L Temperature Source Temporal Pulse Rate 95 Respiratory Rate 18 Respiratory Effort Normal Respiratory Depth Normal Respiratory Pattern Normal Blood Pressure 130/96 H 126/75 H Blood Pressure Mean 107 92 Pulse Ox 96 Oxygen Delivery Method Room Air Positive well nourished, well developed and obese General Appearance ED: well developed Nutritional Appearance: obese HEENT normocephalic and atraumatic External Ear: external ears normal External Auditory Canal: EAC's normal Tympanic Membrane ED: Yes TM abnormal erythematous, fluid behind TM and other (No retraction, bulging or loss of landmarks) Eyes PERRL and EOMs intact bilaterally Neck supple and no meningeal signs Resp normal respiratory effort and clear to auscultation bilaterally Cardio no murmurs Rate: regular rate Rhythm: regular rhythm GI non-tender and non-distended Palpation: soft Extremity normal to inspection and full ROM Neuro oriented x3 Sensorium / Orientation: alert Motor Exam: general weakness Psych mental status grossly normal Skin Lesions: no lesions Rashes: no rashes MDM MDM MDM Narrative Medical decision making narrative: Patient evaluated for 5 days of upper respiratory symptoms and worse known to fever and chills. She is 99% on room air and while she looks like she does not feel good she does not appear toxic. Her sounds are clear. Covid test is positive. This likely explains her presentation. Patient will continue taking Tylenol. She is referred for monoclonal antibody. She is counseled on quarantine precautions. She is given a work note stating that she has Covid and that she needs to quarantine for 10 to 14 days from onset of symptoms. Patient is counseled on signs and symptoms requiring return to the emergency room. Patient verbalizes agreement and understand this plan. Patient discharged home in stable and improved condition. Lab Data Attestation: I reviewed the patient's lab results. Discharge Plan Triage Chief Complaint: Cough ED Provider: Elyse Ordaz Dx/Rx/DC Orders Clinical Impression: COVID-19 virus infection Instructions: Coronavirus Disease 2019 (COVID-19): Caring for Yourself or Others Prescriptions: New albuterol sulfate [Ventolin HFA] 1 INHALER inhaler 1 - 2 puff inhalation Q4H PRN PRN (Reason: Wheezing) Qty: 1 RF: 0 No Action multivitamin Tablet 1 tab PO DAILY RF: 0 venlafaxine 37.5 mg capsule,extended release 24hr 37.5 mg PO DAILY RF: 0 levothyroxine 100 mcg tablet 200 mcg PO DAILY RF: 0 cholecalciferol (vitamin D3) [Vitamin D3] 50 mcg (2,000 unit) Capsule 50 mcg PO DAILY RF: 0 Primary Care Provider: Gregorio Adams Referrals: Gregorio Adams MD [Primary Care Provider] - Disposition Disposition: Home, Self Care
[2021-02-08 22:05] VITALS: PULSE 89; RESP 18; O2SAT 97
== END 2021-02-08 22:06 | disposition home or self-care (01) ==
PROVIDERS: Emergency Provider Emergency Medicine; PCP Family Medicine
DX: U07.1 COVID-19 (principal); J45.909 Unspecified asthma, uncomplicated; E89.0 Postprocedural hypothyroidism; E66.9 Obesity, unspecified; Z98.84 Bariatric surgery status; Z85.850 Personal history of malignant neoplasm of thyroid; Z79.899 Other long term (current) drug therapy; Z79.1 Long term (current) use of non-steroidal anti-inflammatories (NSAID)
CPT/HCPCS: 87426; 99282

== ENCOUNTER → 2021-10-07 | Outpatient (CLI) | payer MEDICARE, MEDICAID, SELFPAY | END | disposition home or self-care (01) | LOC: LABSPEC 15:41 | PROVIDERS: PCP Family Medicine; Referring Provider Physician Assistant Surgical; Visit Provider Physician Assistant Surgical | DX: U07.1 COVID-19 (principal) | CPT/HCPCS: 87635; U0003; U0005 ==

== ENCOUNTER 2022-03-08 22:02 | Emergency (ER) | payer MEDICARE, MEDICAID, SELFPAY ==
[2022-03-08 22:03] VITALS: BP 137/92; PULSE 66; RESP 16; TEMP 36.6; O2SAT 100; BMI 46.6
--- NOTE | 2022-03-08 22:17 | EX.ED.DYSGE1 ---
HPI History of Present Illness Chief Complaint: Allergic Reaction Narrative Narrative: 36-year-old female presents with allergic reaction type symptoms that she has had all day. She states her symptoms began at 8:00. She had been up for a while. She noticed an allergic rash to her left upper extremity with bumps on it. Throughout the day, she noticed that she may have been wheezy but she has a history of asthma. She denies any tongue swelling but states her throat felt tight. She has past medical history of gastric bypass surgery, and she takes Zoloft for depression which she started 2 weeks ago. She had not taken any medications or eaten any food when her symptoms began. She thinks that they are progressing throughout the the day. She only took a quarter of a Benadryl because she did not want to mix it with her Zoloft. PFSH PFS Medical History Asthma Back pain Hay fever Hemorrhoids Hypertension Incontinence Severe headache SOB (shortness of breath) Home Medications cholecalciferol (vitamin D3) 50 mcg (2,000 unit) capsule (Vitamin D3) 50 mcg PO DAILY 07/12/20 [History Last Taken Unknown] levothyroxine 100 mcg tablet 200 mcg PO DAILY 07/12/20 [History Last Taken Unknown] multivitamin 1 tab PO DAILY 07/12/20 [History Last Taken Unknown] venlafaxine 37.5 mg capsule,extended release 24 hr 37.5 mg PO DAILY 07/12/20 [History Last Taken Unknown] albuterol sulfate 90 mcg/actuation aerosol inhaler (Ventolin HFA) 1 - 2 puff inhalation Q4H PRN PRN Wheezing ##1 02/08/21 [Rx Last Taken Unknown] Allergy/AdvReac Type Severity Reaction Status Date / Time venlafaxine [From Effexor] Allergy Other Verified 03/08/22 22:06 ibuprofen AdvReac Upset Verified 10/07/21 12:12 Stomach NSAIDS (Non-Steroidal AdvReac Upset Verified 10/07/21 12:12 Anti-Inflamma Stomach Surgical History History of appendectomy History of cholecystectomy History of gastric surgery History of thyroidectomy Social History Smoking Status: Never smoker alcohol intake: never ROS ROS ED ROS Narrative Constitutional: No fever, no chills. HEENT: No sore throat. No neck pain. No loss of vision. No rhinorrhea. No tongue swelling. Throat feels tight. Cardiovascular: No chest pain. No palpitations. No pedal edema. Respiratory: No cough, no shortness of breath. Reported wheezing. Abdominal: No abdominal pain. No nausea. No vomiting. Genitourinary: No dysuria. No hematuria. Musculoskeletal: No myalgias. No arthralgias. Neurologic: No headaches. No dizziness. No lightheadedness. Skin: Allergic type rash upper extremity/shoulder. No change in color. Psychiatric: No depression. No anxiety. EXAM Physical Exam Narrative Exam Narrative: Afebrile. Vital signs noted. HEENT: Normocephalic. Atraumatic. PERRL, EOMI. Neck soft and supple. No point tenderness or step off. Airway patent. No angioedema. No Ken angina. No drooling or trismus. No stridor. Cardiovascular: Regular rate and rhythm. No murmurs, rubs, or gallops appreciated. Respiratory: No tachypnea. Lungs clear to auscultation bilaterally. No wheezing. Gastrointestinal: Abdomen soft, nontender, with normoactive bowel sounds. No rebound or guarding. Neurological: Awake. Alert. Nonfocal, nonlateralizing. Skin: No appreciable hives/rash. Normal color. No pallor. Musculoskeletal: No pedal edema. Full range of motion extremities. Const Vital Signs: 03/08/22 22:03 Temperature 98 F Temperature Source Temporal Pulse Rate 66 Respiratory Rate 16 Blood Pressure 137/92 H Blood Pressure Mean 107 Pulse Ox 100 Oxygen Delivery Method Room Air MDM MDM MDM Narrative Medical decision making narrative: I am unsure as to the cause of the patient's reported symptoms. Her pulse ox 100% on room air without evidence of hypoxia. I do not feel albuterol is indicated and I do not feel that epinephrine is indicated. I was going to administer Benadryl 25 mg intravenously, but states she drove here. She would like to take Benadryl at home. As her symptoms have been ongoing for over 12 hours, I do that after short observation period here in the emergency department that she could be discharged take [id number] Benadryl as needed. Return instructions to the emergency department were reviewed. Disposition is discharged home in stable condition. Discharge Plan Triage Chief Complaint: Allergic Reaction ED Provider: Brain Curtis Dx/Rx/DC Orders Clinical Impression: Sensation of swollen throat, Allergic symptoms Instructions: ED General Allergic Reactions Prescriptions: No Action multivitamin Tablet 1 tab PO DAILY venlafaxine 37.5 mg capsule,extended release 24hr 37.5 mg PO DAILY levothyroxine 100 mcg tablet 200 mcg PO DAILY cholecalciferol (vitamin D3) [Vitamin D3] 50 mcg (2,000 unit) Capsule 50 mcg PO DAILY albuterol sulfate [Ventolin HFA] 1 INHALER inhaler 1 - 2 puff inhalation Q4H PRN PRN (Reason: Wheezing) Qty: 1 0RF Primary Care Provider: Gregorio Adams Referrals: Gregorio Adams MD [Primary Care Provider] - 1-2 Days if not improving Disposition Disposition: Home, Self Care
[2022-03-08 22:54] VITALS: BP 137/93; PULSE 66; RESP 16; O2SAT 100
== END 2022-03-08 22:57 | disposition home or self-care (01) ==
PROVIDERS: Emergency Provider Emergency Medicine; PCP Family Medicine; Visit Provider Emergency Medicine
DX: T78.40XA Allergy, unspecified, initial encounter (principal); I10 Essential (primary) hypertension; J45.909 Unspecified asthma, uncomplicated; X58.XXXA Exposure to other specified factors, initial encounter
CPT/HCPCS: 99283; A4216